=== PATIENT | female | born 1980 | race African-American/Black ===

== ENCOUNTER 2018-01-09 04:22 | Emergency (ER) | payer BC ==
[~2018-01-09] VITALS: Ht 172.7 cm; Wt 108.9 kg
[2018-01-09] MEDS ORDERED: KETOROLAC TROMETHAMINE 60 MG/2 ML VIAL IM ONE (05:00)
[2018-01-09] MEDS ORDERED: ULTRAM50 MG PO (05:09)
--- NOTE | 2018-01-09 05:58 | Diagnostic Imaging Report ---
FOOT 3 VIEW LT - HOPD HISTORY: No trauma. Pain to third through fifth digits and posterior foot. COMPARISON: None available. FINDINGS: Bones: No acute displaced fracture. Tiny posterior calcaneal views of height. Osseous alignment is within normal limits. Joints: The joint spaces are well-maintained. Soft tissues: The soft tissues appear unremarkable. IMPRESSION: No acute radiographic abnormality. Signed by: DR. Selwyn Gates MD on 01/09/2018 5:55 AM
--- NOTE | 2018-01-09 06:00 | Diagnostic Imaging Report ---
KNEE 3VW LT - HOPD HISTORY: Posterior and lateral left knee pain, no trauma. COMPARISON: None available. FINDINGS: Bones: No acute displaced fracture. Osseous alignment is within normal limits. Joints: Mild tricompartmental degenerative changes of the knee. Soft tissues: The soft tissues appear unremarkable. IMPRESSION: No acute radiographic abnormality. Signed by: DR. Selwyn Gates MD on 01/09/2018 5:57 AM
== END 2018-01-09 06:25 | disposition home or self-care (01) ==
LOC: FSED 04:22
DX: S83.412A Sprain of medial collateral ligament of left knee, initial encounter (principal); X50.1XXA Overexertion from prolonged static or awkward postures, initial encounter
CPT/HCPCS: 99283